=== PATIENT | male | born 1980 | race Caucasian/White ===

== ENCOUNTER 2020-01-22 11:18 | Emergency (ER) | payer SELFPAY ==
[2020-01-22] MEDS ORDERED: diphenhydrAMINE 50 MG/ML VIAL ONE (11:47)
[2020-01-22] MEDS ORDERED: predniSONE 20 MG TAB ONE (11:47)
== END 2020-01-22 12:12 | disposition home or self-care (01) ==
LOC: BURERS 11:18
DX: R21 Rash and other nonspecific skin eruption (principal); T36.1X5A Adverse effect of cephalosporins and other beta-lactam antibiotics, initial encounter; F17.210 Nicotine dependence, cigarettes, uncomplicated; Z71.6 Tobacco abuse counseling
CPT/HCPCS: 96372; 99406; J1200; J7512

== ENCOUNTER 2020-02-03 14:11 | Emergency (ER) | payer SELFPAY | END 2020-02-03 14:34 | disposition home or self-care (01) | LOC: BURERS 14:11 | DX: B86 Scabies (principal); F17.210 Nicotine dependence, cigarettes, uncomplicated | CPT/HCPCS: 99282 ==

== ENCOUNTER 2021-01-22 14:22 | Emergency (ER) | payer SELFPAY ==
[2021-01-22] MEDS ORDERED: Ketorolac Tromethamine 30 MG/ML VIAL ONE (14:44)
[2021-01-22 14:46] LABS: #Basophils 0.1 thou/uL (0.0-0.2); #Eosinphils 0.3 thou/uL (0.0-0.7); #Lymphocytes 1.6 thou/uL (1.20-3.40); #Monocytes 0.5 thou/uL (0.11-0.59); #Neutrophils 4.8 thou/uL (1.40-6.50); %Basophils 1.3 % (0.0-1.0); %Eosinophils 4.6 % (0.0-10.0); %Lymphocytes 21.7 % (21.0-51.0); %Monocytes 6.3 % (0.0-10.0); %Neutrophils 66.1 % (42.0-75.0); Hemoglobin 15.6 g/dL (14.0-18.0); Mean Corpuscular HGB CONC 34.8 g/dL (32.0-36.0); Mean Corpuscular Hemoglobin 31.5 pg (27.0-31.0); Mean Corpuscular Volume 90.6 fL (78.0-98.0); Mean Platelet Volume 7.7 fL (7.4-10.4); Platelet Count 223 thou/uL (130-400); RBC Distribution Width 11.6 % (11.5-14.5); Red Blood Cell (RBC) Count 4.96 mill/uL (4.70-6.10); White Blood Cell (WBC) Count 7.3 thou/uL (4.8-10.8)
[2021-01-22 15:04] LABS: ALT (SGPT) 11 U/L (8-55); AST (SGOT) 12 U/L (5-34); Albumin 4.3 g/dL (3.5-5.0); Alkaline Phosphatase 52 U/L (40-110); Anion Gap 14 mmol/L (10-20); BUN (Urea Nitrogen) 9 mg/dL (8.9-20.6); Bilirubin, Total 0.5 mg/dL (0.2-1.2); Calc. Creatinine Clearance 0 mL/min (70-130); Calcium 9.3 mg/dL (7.8-10.44); Carbon Dioxide 28 mmol/L (22-29); Chloride 102 mmol/L (98-107); Globulin 2.5 g/dL (2.4-3.5); Glucose 90 mg/dL (70-105); Lipase 51 U/L (8-78); Protein, Total 6.8 g/dL (6.0-8.3); Sodium 140 mmol/L (136-145)
== END 2021-01-22 15:28 | disposition home or self-care (01) ==
LOC: BURERS 14:22
DX: R07.89 Other chest pain (principal); F17.210 Nicotine dependence, cigarettes, uncomplicated
CPT/HCPCS: 71045; 80053; 80307; 83690; 84484; 85025; 85379; 93005; 94760; 96374; J1885